=== PATIENT | female | born 2000 | race Caucasian/White ===

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

== ENCOUNTER 2019-06-26 11:29 | Inpatient (IN) ==
[2019-06-26 13:29] LABS: BASO# 0.06 X1000 (0.0-0.2); BASO% 0.5 % (0.0-0.8); EOS# 0.08 X1000 (0.0-0.7); EOS% 0.6 % (0.0-10.0); HEMATOCRIT 40.6 % (37.0-47.0); HEMOGLOBIN 13.2 g/dL (12.0-16.0); IMM GRAN# 0.02 X1000 (0.0-0.04); IMM GRAN% 0.2 % (0.0-0.5); LYMPH# 1.55 X1000 (1.2-3.4); LYMPH% 12.2 % (20.5-51.1); MCH 27.2 PG (27-31); MCHC 32.5 g/dL (33-37); MCV 83.7 FL (81-99); MONO% 10.2 % (1.7-9.3); MPV 11.2 FL (7.4-10.4); NEUT# 9.71 X1000 (1.4-6.5); NEUT% 76.3 % (42.2-75.2); PLT 239 X1000 (130-400); RBC 4.85 XMIL (4.2-5.4); RDW 12.2 % (11.5-14.5); WBC 12.72 X1000 (4.8-10.8)
[2019-06-26 13:52] LABS: ALB/GLOB RATIO 0.8; ALBUMIN 3.5 g/dL (3.5-5.0); CALCIUM 9.4 mg/dL (8.8-10.2); CREATININE 2.4 mg/dL (0.5-0.9); TOTAL BILIRUBIN 0.38 mg/dL (0.20-1.00); TOTAL PROTEIN 7.7 g/dL (6.3-8.3)
--- NOTE | 2019-06-26 14:00 | Diag Imaging Result Doc PS360 ---
CHEST-1 VIEW - 06/26/2019 INDICATION: cough, fever, L side pain COMPARISON: 06/19/2018 FINDINGS: The chest is clear. There is significant gaseous distention of the colon in the left upper quadrant. There is probably severe constipation here. IMPRESSION: Abnormal appearance of the colon in the left upper quadrant. Probable constipation. Recommend x-rays or CT of the abdomen/pelvis. Electronically signed by Raymond Nash 06/26/2019 1:57 PM
[2019-06-26 15:55] LABS: URINE SOURCE VOIDED
[2019-06-26 16:01] LABS: BILIRUBIN URINE NEGATIVE (NEGATIVE); BLOOD URINE SMALL (NEGATIVE); CLARITY CLEAR (CLEAR); COLOR YELLOW; GLUCOSE URINE NEGATIVE (NEGATIVE); KETONE URINE NEGATIVE (NEGATIVE); LEUKOCYTES URINE SMALL (NEGATIVE); NITRITE URINE NEGATIVE (NEGATIVE); PROTEIN URINE 100 mg/dL (NEGATIVE); SP GRAVITY URINE <= 1.005; UROBILINOGEN URINE 0.2 EU/dL (0.2-1.0)
[2019-06-26 16:11] LABS: URINE BACTERIA NEGATIVE /HFP; URINE CAST NONE SEEN /LPF; URINE CRYSTAL NONE SEEN /HPF; URINE EPITHELIAL CELLS <10 /HPF (<10); URINE RBC <10 /HPF (<10); URINE YEAST NONE SEEN /HPF
[2019-06-26] MEDS ORDERED: OFIRMEV 1000 MG/ISOTONIC SOLN 1,000 MG/100 ML BOTTLE IV ONE (16:15)
--- NOTE | 2019-06-26 16:34 | Diag Imaging Result Doc PS360 ---
CT ABDOMEN/PELVIS W/O CONTRAST - 06/26/2019 INDICATION: abd pain, and GFR too low COMPARISON: 06/20/2018 FINDINGS: There is massive, massive rectal stool impaction with a 10 cm rectal stool ball. There is massive diffuse constipation. Stable G-tube in good position. There are some stable distended loops of bowel in the left upper quadrant. No free air. IMPRESSION: No change from prior. This exam was performed using automated exposure control, adjustment of mA or kV according to patient size, and/or use of iterative reconstruction technique Electronically signed by Raymond Nash 06/26/2019 4:32 PM
[2019-06-26] MEDS ORDERED: FLEET MINERAL OIL ENEMA PR ONE (16:42)
[2019-06-26] MEDS ORDERED: LACTULOSE PO ONE (16:44)
[2019-06-26] MEDS ORDERED: ROCEPHIN 1 GM in NS 50 ML IV ONE (16:44)
--- NOTE | 2019-06-26 17:21 | PROVIDER DOCUMENTATION ---
This chart was entered by Tamara Kurtz Scribe, acting as scribe for Mickey Gambino MD. HPI-General Adult - General Chief Complaint: Abdominal Pain Stated Complaint: LEFT SIDED PAIN Time Seen by Provider: 06/26/19 11:53 Source: patient, family (Mother) Allergies/Adverse Reactions: Patient Allergies Allergy/AdvReac Type Severity Reaction Status Date / Time No Known Allergies Allergy Verified 06/18/18 21:31 Home Medications: Home Medication List Medication Instructions Recorded Confirmed Last Taken Type Gabapentin 100 mg .SEE ORDER 06/19/18 06/19/18 Unknown History TID@0500,1500,2200 Sodium Bicarbonate 4 tab .SEE ORDER TID@0500,1500,2200 06/19/18 06/19/18 Unknown History Lactulose 30 ml PO DAILY #900 ml 06/21/18 Unknown Rx - History of Present Illness -Gen Adult Nature of Presenting Problems: 19 y/o developmentally delayed paraplegic female presents to the ED with Mother stating right sided pain with breathing with mild fever, cough, red throat, and fatigue since yesterday. Location of Pain/Injury: reports: other (right side) Onset/Duration: reports: 24 hours ago Timing: reports: still present Modifying Factors: worse with: breathing Associated Symptoms: reports: cough, fever/chills. denies: nausea, vomiting Review of Systems - Adult - REVIEW OF SYSTEMS - ADULT Constitutional: reports: fever. denies: weight gain, weight loss Eyes: reports: no symptoms reported Ears, Nose, Mouth & Throat: reports: throat pain. denies: epistaxis, mouth/dental pain Cardiovascular: reports: no symptoms reported Respiratory: reports: cough, other (right side pain with inspiration). denies: hemoptysis, shortness of breath, wheezing Gastrointestinal: denies: diarrhea, nausea, vomiting Genitourinary: denies: dysuria, discharge, hematuria Musculoskeletal: reports: no symptoms reported Integumentary: reports: no symptoms reported Neurological: reports: no symptoms reported Psychiatric: reports: no symptoms reported Endocrine: reports: no symptoms reported Hematologic/Lymphatic: reports: no symptoms reported Allergic/Immunologic: reports: no symptoms reported All Other Systems: Reviewed and Negative Past History - Adult - PAST MEDICAL HISTORY-ADULT Review of Records: reports: Old Records Reviewed, Nursing Assessment Review, Medications Reviewed - IMMUNIZATION STATUS Childhood Immunizations: See Nurse Assessment Flu Vaccine: See Nurse Assessment - SOCIAL HISTORY Smoking: non-smoker Substance Use: none/never Alcohol Use Frequency: never Living Situation: family Physical Exam-General - PHYSICAL EXAM-ADULT Initial Vital Signs Reviewed: Yes - CONSTITUTIONAL General Appearance: alert, no apparent distress - EYES Eyes: PERRL/EOMI, pink conjunctivae - HEAD, EARS, NOSE, MOUTH & THROAT HENMT: normocephalic/atraumatic, moist mucous membranes. negative: pharyngeal erythema - RESPIRATORY Respiratory: lungs clear, normal breath sounds. negative: rales, rhonchi, wheezing - CARDIOVASCULAR Cardiovascular: regular rate, rhythm, no gallop, no murmur - GASTROINTESTINAL (ABDOMEN) Abdominal Exam: non tender, soft. negative: distended, guarding, rebound - MUSCULOSKELETAL Extremity: other (bilateral lower extremities contracted) - SKIN Integumentary: normal color, warm/dry. negative: diaphoresis Progress - PLAN OF CARE/RESULTS Progress/Plan/Lab Results: Vital Signs - 8 hr 06/26/19 11:51 Temperature 99.4 F Pulse Rate 112 H Respiratory Rate 19 Blood Pressure 115/87 O2 Sat by Pulse Oximetry 98 1415: Informed Mother of possible abnormality on chest x-ray and will perform CT. She is in agreement. 1649: Discussed CT findings with Mother. Discussed admission with Mother and the patient and they are in agreement. Mother is concerned about creatinine. 1708: Discussed creatinine of 2.4 and lab findings with Mother. Result Diagrams: 06/26/19 12:33 06/26/19 12:33 - XRAY 1 XRAY Study: Chest (CHEST-1 VIEW - 06/26/2019 INDICATION: cough, fever, L side pain COMPARISON: 06/19/2018 FINDINGS: The chest is clear. There is significant gaseous distention of the colon in the left upper quadrant. There is probably severe constipation here. IMPRESSION: Abnormal appearance of the colon in the left upper quadrant. Probable constipation. Recommend x-rays or CT of the abdomen/pelvis. Electronically signed by Raymond Nash 06/26/2019 1:57 PM) - CT/MRI 1 CT Study: Abdomen, Pelvis Impression: Abnormal (CT ABDOMEN/PELVIS W/O CONTRAST - 06/26/2019 INDICATION: abd pain, and GFR too low COMPARISON: 06/20/2018 FINDINGS: There is massive, massive rectal stool impaction with a 10 cm rectal stool ball. There is massive diffuse constipation. Stable G-tube in good position. There are some stable distended loops of bowel in the left upper quadrant. No free air. IMPRESSION: No change from prior. This exam was performed using automated exposure control, adjustment of mA or kV according to patient size, and/or use of iterative reconstruction technique Electronically signed by Raymond Nash 06/26/2019 4:32 PM) - CONSULTS/PCP/HOSPITALIST Notification #1 *Consult/PCP/Hospitalist*: Hospitalist Time Discussed: 17:03 Consult Disposition: Will see in ED, Admit Departure - Departure Date of Disposition Decision: 06/26/19 Time of Disposition Decision: 16:54 DIAGNOSIS: Fecal impaction in rectum, Obstipation, Paraplegia Abdominal pain Qualifiers: Abdominal location: left upper quadrant Qualified Code(s): R10.12 - Left upper quadrant pain UTI (urinary tract infection) Qualifiers: Urinary tract infection type: site unspecified Hematuria presence: without hematuria Qualified Code(s): N39.0 - Urinary tract infection, site not specified Disposition: ADMITTED INPATIENT 09 Certified Medical Emergency: Emergent Condition: Good Referrals and Follow-Ups: Ehsan Yang MD [Primary Care Provider] - - Critical Care Note This patient required my direct & personal management of CC.: No Attestation - Physician/ RANDI Attestation Patient care was provided by Advanced Practice Provider:: No The physician spent face to face time with patient:: Yes Advanced Practice Provider documentation review:: Supervising physician onsite and consulted in the evaluation and care of this patient. The physician did have a face to face encounter with the patient. This chart was documented by the indicated scribe, (Tamara Kurtz, Ata) and accurately reflects the services I performed and decisions made by me, Mickey Gambino MD, as attested by the provider's signature.
[2019-06-26] MEDS ORDERED: MISC. PHARMACY COMMUNICATION SCH (17:45)
[2019-06-26] MEDS ORDERED: D5 NS 1,000 ML IV ONE (18:07)
[2019-06-26] MEDS ORDERED: ZOFRAN IV PRN (18:08)
[2019-06-26] MEDS ORDERED: ZOFRAN ODT PO PRN (18:08)
--- NOTE | 2019-06-26 19:24 | HISTORY AND PHYSICAL ---
ADDENDUM: Patient seen and examined by me face to face, all the laboratory, vital signs and images were reviewed. The patient presented to emergency department with a chief complaining of abdominal pain, she has some developmental delay. Her mother is at the bedside, we did a CT of the abdomen and pelvis that showed severe constipation and actually she has a rectal stool impaction of 10 cm stool ball, she will receive multiple enemas today and hopefully that will help. I talked to the mother about this and I recommended to have at least 1 to 2 bowel movements per day to avoid these kind of problems, there is a massive diffuse constipation, she seems to be having chronic kidney disease but this is apparently her baseline. I have a previous creatinine and has been about the same, BUN is a little elevated though so I will give her some fluids. Her abdomen is tender mostly on the left side and lower abdomen and right lower quadrant. It has been mention that she probably has UTI but she is not having symptoms but I am not quite sure about her sensitivity at the level of the lower extremities and pelvic area, what I am going to do is a culture because the urinalysis does not look that bad. I agree with the rest of the nurse practitioner's assessment and plan. cc: Emery Main MD
[2019-06-26] MEDS: ROCEPHIN 1 GM in NS 50 ML IV SCH (21:22)
--- NOTE | 2019-06-26 22:11 | HISTORY AND PHYSICAL ---
CHIEF COMPLAINT: Abdominal pain. Ms. Wiseman is a 19-year-old developmentally delayed paraplegic patient who started having some right-sided pain,difficulty breathing,subjective fevers and a cough yesterday. She was found to have a massive rectal stool impaction with a 10 cm rectal stool ball with stable distended loops of bowel. On questioning the mother she stated that the patient has not had a good bowel movement in the last 5 to 6 days as a matter of fact last week she was having episodes of liquid stools. She has had a decreased appetite during this time and some fleeting nausea. PAST MEDICAL HISTORY: 1. Chronic kidney disease stage 2. 2. Seizure disorder. 3. Cerebral palsy. PAST SURGICAL HISTORY: Heel extensions, tendon transferred, G-tube placement, baclofen internal pump. SOCIAL HISTORY: She lives with her mother. Denies alcohol, tobacco or illicit drug use. ALLERGIES: No known drug allergies. HOME MEDICATIONS: A list will be obtained by the nursing staff and once verified will review and restart as appropriate. REVIEW OF SYSTEMS: Discussed with the patient and her mother with pertinent positives stated in the HPI. She denied any syncope or dizziness, any chest pain or palpitations, any shortness of breath, any vomiting, any black or bloody vomitus or stools, hematuria, dysuria, frequency, urgency. PHYSICAL EXAMINATION: GENERAL: This is a 19-year-old female who is lying on the stretcher in the emergency room in no distress. HEENT: Head is normocephalic, atraumatic. Mucous membranes are moist. Pupils equal, round, react to light. EOMs are intact. CARDIOVASCULAR: Regular rate and rhythm. S1, S2 appreciated. No murmur. PULMONARY: Breath sounds are clear. No increased work of breathing noted. Chest rises and falls symmetric respiration. GASTROINTESTINAL: Abdomen soft, nontender, nondistended. Bowel sounds in all 4 quadrants. NEUROLOGIC: She is alert and oriented. SKIN: Warm and dry. LABS: WBC is 12.7 with hemoglobin 13.2, hematocrit 40.6 and platelets of 239,000. Sodium is 137, potassium 5, BUN 29, creatinine 2.4 with a glucose of 90. Urinalysis is a voided specimen reveals a small amount of blood with a 10 to 20 microscopic white blood cells. Influenza A and B are negative. ASSESSMENT AND PLAN: 1. Severe constipation with fecal impaction. 2. Paraplegia. 3. Left upper quadrant pain. 4. Possible urinary tract infection. 5. Chronic kidney disease stage 2. PLAN: The patient will be admitted to the medical floor. clear liquids. CBC and BMP in the morning obtain a urine culture. milk and molasses enemas every 2 hours x3 Zofran for nausea. identify her home medications and continue as appropriate. D5 normal saline at 50 mL an hour for 1 bag and then reassess in the morning. Rocephin daily, further antibiotics will be culture driven. Plan was discussed with Dr. Mckay. Further treatments pending hospital course. Dictated by MIRELLA Shelley for Emery Main MD cc: MIRELLA Shelley MD MTD
[2019-06-26] MEDS: NON-FORMULARY BULK MED SCH (23:44)
[2019-06-27] MEDS: NON-FORMULARY BULK MED SCH ×2 (02:37→05:24)
[2019-06-27 06:51] LABS: HEMATOCRIT 38.2 % (37.0-47.0); MCH 27.1 PG (27-31); MCHC 31.4 g/dL (33-37); MCV 86.2 FL (81-99); MPV 11.1 FL (7.4-10.4); RBC 4.43 XMIL (4.2-5.4); RDW 12.3 % (11.5-14.5); WBC 9.14 X1000 (4.8-10.8)
[2019-06-27 07:23] LABS: CALCIUM 9.3 mg/dL (8.8-10.2); CREATININE 2.6 mg/dL (0.5-0.9); POTASSIUM 4.8 mmol/L (3.5-5.1)
--- NOTE | 2019-06-27 12:08 | Diag Imaging Result Doc PS360 ---
EXAM: CHEST-PORTABLE 06/27/2019 HISTORY: SOB TECHNIQUE: AP portable upright at 1157 COMMENT: The appearance of the chest has not changed significantly since 06/26/2019. There is still a large amount of colonic gas. IMPRESSION: Stable chest. Electronically signed by Arnaldo Delong 06/27/2019 12:06 PM
[2019-06-27] MEDS: ZITHROMAX 500 MG/NS 500 MG/250 ML IVPB IV SCH (13:43)
[2019-06-27] MEDS: TESSALON PO SCH ×3 (13:43→23:00)
--- NOTE | 2019-06-27 14:40 | PROGRESS NOTE ---
DATE: 06/27/2019 SUBJECTIVE: The patient seems to be doing much better compared with yesterday. She has been having multiple bowel movements. She was found to have a massive rectal stool impaction with a 10 cm rectal stool ball with stable distended loops of bowel. She received multiple enemas and she has been having multiple bowel movements. I do not think she has a UTI but she does have an infiltrate and/or atelectasis at the level of the right lower lobe. She has been coughing a lot and apparently, she has been having some chills, so I will continue with antibiotics. I will add breathing treatments, MiraLAX. I will give her an extra enema. Let us see how she does. OBJECTIVE: Vital Signs: Temperature 97.2 degrees, pulse 102, respiratory rate 16, blood pressure 107/76, oxygen saturation 99 on room air. HEENT: Head normocephalic. No trauma. PERRLA. Neck: Supple. No JVD. No masses. Central trachea. Chest: Clear to auscultation. Some crepitus at the bases, especially on the right side. Probably some rhonchi. Abdomen: Soft, nontender, nondistended. No hepatosplenomegaly. Extremities: She does have some lower extremity deformity. She is paraplegic. Neurological Examination: She has mild developmental delay. She is alert. She is oriented. She is answering questions. Laboratory: WBC 9.1, hemoglobin 12, hematocrit 38.2, platelets 237,000. Sodium 144, potassium 4.8, chloride 115, bicarbonate 17, BUN 28, creatinine 2.6, glucose 118, calcium 9.3. ASSESSMENT AND PLAN: 1. Severe constipation with fecal impaction. This is getting much better. I will continue with an enema today and tomorrow, hopefully. I will go ahead and continue with MiraLAX and suppositories as needed. The mother is at the bedside and she seems to understand this treatment. 2. New x-ray showed no changes compared with yesterday but I do believe she has some infiltrates at the level of the right lower lobe. Continue with azithromycin and ceftriaxone. Probably, this patient has some atelectasis and/or pneumonia. She has been coughing and having some chills. 3. Paraplegia. Aware. With some developmental delay. 4. Left upper abdominal quadrant pain, much better. 5. Chronic kidney disease stage 2. Continue with the same management. She is getting some fluids. 6. Initially, we were told that she has been having some urinary tract infection. Unfortunately, she is not able to say if she is symptomatic or not. She is on ceftriaxone but the urine culture is negative and the urinalysis did not show any nitrites or bacteria, only small WBC. cc: Emery Main MD
[2019-06-27] MEDS: DUONEB (A & A) INH SCH ×3 (15:40→23:13)
[2019-06-27] MEDS ORDERED: TYLENOL PO PRN (16:41)
[2019-06-27] MEDS: TYLENOL LIQUID PO PRN ×2 (17:13→23:00)
[2019-06-27] MEDS: ROCEPHIN 1 GM in NS 50 ML IV SCH (21:02)
[2019-06-27] MEDS: D5 1/2 NS 1,000 ML IV SCH (21:03)
[2019-06-28] MEDS: DUONEB (A & A) INH SCH ×5 (03:18→19:47)
--- NOTE | 2019-06-28 07:42 | EKG Report ---
Test Performed on : 06/28/2019 07:13:30 AM Test Reason : Tachycardia Blood Pressure : / mmHG Vent. Rate : 100 BPM Atrial Rate : 100 BPM P-R Int : 162 ms QRS Dur : 084 ms QT Int : 342 ms P-R-T Axes : 032 -24 -02 degrees QTc Int : 441 ms Normal sinus rhythm. Low voltage QRS Cannot rule out Anterior infarct , age undetermined Abnormal ECG No previous ECGs available Confirmed by Hoang BRYAN, Campos Hernandez ([id number]) on 06/30/2019 7:28:42 AM
[2019-06-28] MEDS: DULCOLAX PR SCH (08:49)
[2019-06-28] MEDS: MIRALAX PO SCH (08:50)
[2019-06-28] MEDS: TESSALON PO SCH ×3 (08:50→17:12)
[2019-06-28] MEDS: D5 1/2 NS 1,000 ML IV SCH (09:35)
[2019-06-28] MEDS: ZITHROMAX 500 MG/NS 500 MG/250 ML IVPB IV SCH (11:32)
--- NOTE | 2019-06-28 12:11 | PROGRESS NOTE ---
DATE: 06/28/2019 SUBJECTIVE: As per mother who is at bedside, patient is doing fine. She is having good bowel movements. She reports that lactulose definitely works better for constipation. OBJECTIVE: Vital Signs: Temperature 97.8 degrees, heart rate 99, respiratory 14, blood pressure 90/42, and O2 saturation 100% on room air. General: This is a 27-year-old female lying in bed in no acute distress. Cardiovascular: S1, S2 heard. No murmurs, gallops, or rubs. Regular rate and rhythm. Respiratory: Clear bilaterally to auscultation. Some crepitus in the bases in the right side, probably some rhonchi, but patient is not using any accessory muscles or having work of breathing. Abdomen: Soft. Nondistended. Nontender to palpation. Bowel sounds present. No organomegaly. Extremities: The patient is paraplegic. She has some deformity in the lower extremities. Neurological: Patient has mild developmental delay. She is alert and oriented. She answers basic questions. LABORATORY DATA: CBC is completely normal. BMP reveals creatinine 2.6 with glucose of 118. ASSESSMENT/PLAN: 1. Severe constipation. At this point, we will with continue with lactulose, that according to mother it works really well for her. 2. Suspected UTI. I do not think this patient has a urinary infection. The urine is fine. The patient not able to provide any more information about any urinary symptoms. The white cell count is completely normal. The urine culture showed no growth so at this point I think she is fine. 3. Right lower lobe pneumonia. We are not sure if that was an atelectasis or not. In any case, patient has been started on azithromycin and ceftriaxone. We will continue with the same management. 4. Chronic kidney disease stage 2. We will continue to monitor BMP daily. 5. Disposition. I think this patient is doing fine. According to mother, she is getting back to her baseline. I think if this patient is feeling better tomorrow, I think we can let her go tomorrow as well. cc: Zak Lewis MD [facility]
[2019-06-28] MEDS: TYLENOL LIQUID PO PRN ×2 (12:33→22:30)
[2019-06-28] MEDS: ROCEPHIN 1 GM in NS 50 ML IV SCH (22:24)
[2019-06-29] MEDS: DUONEB (A & A) INH SCH ×3 (00:10→08:47)
[2019-06-29] MEDS: D5 1/2 NS 1,000 ML IV SCH (02:36)
[2019-06-29 06:59] VITALS: BP 96/62
[2019-06-29 07:04] LABS: BASO# 0.04 X1000 (0.0-0.2); BASO% 0.5 % (0.0-0.8); EOS# 0.29 X1000 (0.0-0.7); EOS% 3.9 % (0.0-10.0); HEMATOCRIT 36.1 % (37.0-47.0); HEMOGLOBIN 11.1 g/dL (12.0-16.0); LYMPH% 34.6 % (20.5-51.1); MCH 26.9 PG (27-31); MCHC 30.7 g/dL (33-37); MCV 87.4 FL (81-99); MONO# 0.64 X1000 (0.11-0.59); MONO% 8.5 % (1.7-9.3); MPV 10.5 FL (7.4-10.4); NEUT# 3.95 X1000 (1.4-6.5); NEUT% 52.5 % (42.2-75.2); PLT 242 X1000 (130-400); RBC 4.13 XMIL (4.2-5.4); RDW 12.6 % (11.5-14.5); WBC 7.52 X1000 (4.8-10.8)
[2019-06-29 07:35] LABS: CALCIUM 8.3 mg/dL (8.8-10.2); CREATININE 2.2 mg/dL (0.5-0.9); POTASSIUM 4.4 mmol/L (3.5-5.1)
[2019-06-29] MEDS: MIRALAX PO SCH (09:07)
[2019-06-29] MEDS: TESSALON PO SCH (09:08)
[2019-06-29] MEDS: DULCOLAX PR SCH (09:08)
--- NOTE | 2019-06-29 21:43 | DISCHARGE SUMMARY ---
ADMISSION DATE: 06/26/2019 DISCHARGE DATE: 06/29/2019 DISCHARGE DIAGNOSES: 1. Lower lobe pneumonia. 2. Chronic kidney disease, stage 2. 3. Urinary tract infection, ruled out. 4. Constipation, improved. PROCEDURES: 1. Abdominal and pelvic CT showed no change from prior. There is massive rectal stool impaction. There is massive diffuse constipation. Stable G-tube in good position. 2. Chest x-ray done on admission showed abnormal appearance of the colon in the left upper quadrant, probable constipation. HOSPITAL COURSE: This is a 19-year-old female developmentally delayed paraplegic patient who started having some right-sided pain with breathing with subjective fevers and cough. Upon ER evaluation, she was found to have a massive rectal stool impaction and also there was possible pneumonia in the x-ray. Here she was given MiraLAX that did not help but lactulose did help the patient. She started having some bowel movements. She started having a better appetite. We suspected also a urinary tract infection, but the urinalysis revealed normal urinalysis. Urine culture did not grow anything. So, considering her cough and subjective fever we decided to provide this patient with 5 days of antibiotics. According to mom, the patient was back to her baseline. At this point, she is going to be discharged in stable condition. DISCHARGE PHYSICAL EXAMINATION: Vitals: Temperature 97.8 degrees, heart rate 84, respiratory rate 20, blood pressure 105/55, O2 saturation 100% on room air. General: This is a 19-year-old female with some developmental delay, lying in bed, in no acute distress. Cardiovascular: S1, S2 heard. No murmurs, gallops, or rubs. Regular rate and rhythm. Respiratory: Clear bilaterally to auscultation. No work of breathing or using accessory muscles. Abdomen: Soft, nontender to palpation. Bowel sounds present. No organomegaly. Extremities: No clubbing, cyanosis, or edema. Peripheral pulses present in both legs. Neurological: The patient is alert, oriented, but is not fully verbal. Moves 4 extremities spontaneously. DISCHARGE DISPOSITION: 1. Home to self-care. 2. Follow-up with primary care physician, Dr. Ehsan Yang on 07/06/2019 at 10:45. DISCHARGE MEDICATIONS: 1. Dulcolax 10 mg 1 tablet rectally daily. 2. Azithromycin 500 mg p.o. daily for 5 days. 3. Zofran ODT 4 mg every 4 to 6 hours as needed for nausea. 4. Lactulose 10 g p.o. b.i.d. as needed for constipation. 5. Gabapentin 300 mg 1 tablet p.o. 3 times per day. 6. Sodium bicarbonate 4 tablets p.o. 3 times per day. cc: Zak Lewis MD
== END 2019-06-29 11:52 | disposition home health service (06) | DRG 388 ==
LOC: SUPCPDRO → ED 11:29 → SUATTDRO 20:16 → EDIPHOLD 20:16 → 4N 20:29
PROVIDERS: ATTEND Internal Medicine